=== PATIENT | female | born 1995 | race Caucasian/White ===

== ENCOUNTER 2019-02-07 08:27 | Emergency (ER) | payer OTHER ==
[2019-02-07 09:10] LABS: BILIRUBIN,URINE NEGATIVE (NEGATIVE); GLUCOSE, URINE (UA) NEGATIVE (NEGATIVE); KETONES,URINE (UA) NEGATIVE (NEGATIVE); LEUKOCYTE ESTERASE, URINE NEGATIVE (NEGATIVE); NITRITE,URINE NEGATIVE (NEGATIVE); OCCULT BLOOD,URINE NEGATIVE (NEGATIVE); PROTEIN,URINE NEGATIVE (NEGATIVE); UROBILINOGEN,URINE 0.2 (NORMAL) E.U./dL (NORMAL)
[2019-02-07 09:15] LABS: CLARITY,URINE CLEAR (CLEAR)
[2019-02-07 09:22] LABS: BASOPHILS % (AUTO) 0.3 %; EOSINOPHILS % (AUTO) 0.1 %; HGB - HEMOGLOBIN 13.8 g/dL (12.0-16.0); LYMPHOCYTES # (AUTO) 1.4 10^3/uL (1.5-3.5); LYMPHOCYTES % (AUTO) 20.7 %; MEAN CORPUSCULAR HEMOGLOBIN 28.3 pg (27.0-31.0); MEAN CORPUSCULAR HGB CONC 31.9 g/dL (32.0-36.0); MEAN CORPUSCULAR VOLUME 88.9 fL (81.0-99.0); MEAN PLATELET VOLUME 11.1 fL (7.9-10.8); MONOCYTES # (AUTO) 0.4 10^3/uL (0.0-1.0); MONOCYTES % (AUTO) 5.5 %; NEUTROPHILS % (AUTO) 73.1 %; PLT - PLATELET COUNT 215 10^3/uL (130-450); RED BLOOD COUNT 4.87 10^6/uL (4.20-5.40); RED CELL DISTRIBUTION WIDTH 13.2 % (12.0-15.0); WHITE BLOOD COUNT 6.8 x10^3/uL (4.8-10.8)
[2019-02-07] MEDS ORDERED: SODIUM CHLORIDE 0.9% 1,000 ML IV ONE (09:25)
[2019-02-07] MEDS ORDERED: METOCLOPRAMIDE 10 MG/2 ML VIAL IVP STA (09:25)
--- NOTE | 2019-02-07 09:34 | ED Physician Documentation ---
PD HPI NVD - Stated complaint Stated Complaint: NAUSEA/VOMITING/DIARRHEA - Chief complaint Chief Complaint: Abd Pain - History obtained from History obtained from: Patient - History of Present Illness Timing - onset: How many days ago (2) Timing - duration: Days (2) Timing - details: Gradual onset Pain level max: 0 Pain level now: 0 Associated symptoms: No: Fever, Abdominal pain, Chest pain, Hematemesis, Melena, Hematochezia Recently seen: Not recently seen - Additonal information Additional information: 23-year-old female, 2, approximately 8 weeks . She states she has had diarrhea for the past 2 days and began vomiting. No feels lightheaded. No fevers. No vaginal bleeding or discharge. Nothing makes it better or worse. Has not taken anything for this. No fevers. No recent travel. No recent antibiotics. Review of Systems Ten Systems: 10 systems reviewed and negative Constitutional: denies: Fever, Chills Cardiac: denies: Chest pain / pressure Respiratory: denies: Cough GI: reports: Nausea, Vomiting Skin: denies: Rash Musculoskeletal: denies: Neck pain, Back pain Neurologic: denies: Focal weakness, Numbness, Headache PD PAST MEDICAL HISTORY - Past Medical History Past Medical History: No - Past Surgical History Past Surgical History: No - Present Medications Home Medications: Ambulatory Orders Medication Instructions Recorded Confirmed Metoclopramide [Reglan] 10 mg PO Q6H PRN #20 tablet 02/07/19 - Living Situation Living Situation: reports: With family Living Arrangement: reports: At home - Social History Does the pt smoke?: No Does the pt drink ETOH?: No Does the pt have substance abuse?: No - Family History Family history: reports: Non contributory PD ED PE NORMAL - Vitals Vital signs reviewed: Yes - General General: Alert and oriented X 3, No acute distress, Well developed/nourished - HEENT HEENT: Moist mucous membranes - Neck Neck: Supple, no meningeal sign - Cardiac Cardiac: RRR, Strong equal pulses - Respiratory Respiratory: No respiratory distress, Clear bilaterally - Abdomen Abdomen: Soft, Non tender, Non distended - Back Back: No CVA TTP - Derm Derm: Warm and dry, No rash - Extremities Extremities: No edema - Neuro Neuro: Alert and oriented X 3 - Psych Psych: Normal mood, Normal affect Results - Vitals Vitals: Vital Signs - 24 hr 02/07/19 02/07/19 08:48 11:19 Temperature 37.0 C 36.9 C Heart Rate 95 83 Respiratory 18 16 Rate Blood Pressure 125/81 H 152/88 H O2 Saturation 99 100 Oxygen O2 Source Room air - Labs Labs: Laboratory Tests 02/07/19 02/07/19 02/07/19 07:16 07:16 09:00 WBC 6.8 RBC 4.87 Hgb 13.8 Hct 43.3 MCV 88.9 MCH 28.3 MCHC 31.9 L RDW 13.2 Plt Count 215 MPV 11.1 H Neut # (Auto) 5.0 Lymph # (Auto) 1.4 L [place] # (Auto) 0.4 Eos # (Auto) 0.0 Baso # (Auto) 0.0 Absolute Nucleated RBC 0.00 Nucleated RBC % 0.0 Sodium 139 Potassium 4.2 Chloride 106 Carbon Dioxide 24 Anion Gap 9.0 BUN 10 Creatinine 0.7 Estimated GFR (MDRD) 104 Glucose 92 Calcium 8.8 Total Bilirubin 0.4 AST 19 ALT < 10 L Alkaline Phosphatase 42 Total Protein 7.1 Albumin 4.1 Globulin 3.0 Albumin/Globulin Ratio 1.4 Lipase 27 Urine Color YELLOW Urine Clarity CLEAR Urine pH 6.0 Ur Specific [place] 1.020 Urine Protein NEGATIVE Urine Glucose (UA) NEGATIVE Urine Ketones NEGATIVE Urine Occult Blood NEGATIVE Urine Nitrite NEGATIVE Urine Bilirubin NEGATIVE Urine Urobilinogen 0.2 (NORMAL) Ur Leukocyte Esterase NEGATIVE Ur Microscopic Review NOT INDICATED Urine Culture Comments NOT INDICATED PD MEDICAL DECISION MAKING - ED course Complexity details: reviewed results, re-evaluated patient, considered differential, d/w patient ED course: 23-year-old female presents the emergency department with what appears to be a viral gastroenteritis. She is well-appearing, nontoxic. Afebrile. Does not appear to be proximately related at this time. Tolerating p.o. after Reglan. Given IV fluids. Patient counseled regarding signs and symptoms for which I believe and urgent re-evaluation would be necessary. Patient with good understanding of and agreement to plan and is comfortable going home at this time This document was made in part using voice recognition software. While efforts are made to proofread this document, sound alike and grammatical errors may occur. Departure - Departure Disposition: 01 Home, Self Care Clinical Impression: Gastroenteritis Condition: Good Instructions: ED Gastroenteritis Viral Follow-Up: JORGITO CARROLL ARNP [Primary Care Provider] - Within 1 week Prescriptions: Metoclopramide [Reglan] 10 mg PO Q6H PRN #20 tablet PRN Reason: Nausea / Vomiting Comments: Drink plenty of fluids. Return if you worsen. Discharge Date/Time: 02/07/19 11:25
[2019-02-07 10:02] LABS: ALBUMIN 4.1 g/dL (3.2-5.5); ALBUMIN/GLOBULIN RATIO 1.4 (1.0-2.2); ALKALINE PHOSPHATASE 42 IU/L (42-121); ALT ALANINE AMINOTRANSFERASE < 10 IU/L (10-60); AST ASPARTATE AMINOTRANSFERASE 19 IU/L (10-42); BILIRUBIN,TOTAL 0.4 mg/dL (0.2-1.0); BUN - BLOOD UREA NITROGEN 10 mg/dL (6-20); CALCIUM 8.8 mg/dL (8.5-10.3); CARBON DIOXIDE - CO2 24 mmol/L (21-32); CHLORIDE 106 mmol/L (101-111); CREATININE 0.7 mg/dL (0.4-1.0); GFR - MDRD 104 (>89); GLUCOSE 92 mg/dL (70-100); LIPASE 27 U/L (22-51); SODIUM 139 mmol/L (135-145); TOTAL PROTEIN 7.1 g/dL (6.7-8.2)
[2019-02-07 11:20] VITALS: BP 152/88
== END 2019-02-07 11:25 | disposition home or self-care (01) ==
LOC: ED 08:27
DX: O99.611 Diseases of the digestive system complicating pregnancy, first trimester (principal); K52.9 Noninfective gastroenteritis and colitis, unspecified; Z3A.08 8 weeks gestation of pregnancy
CPT/HCPCS: 36415; 80053; 81003; 83690; 85025; 99283; 99284; J2765; 81001; 87086

== ENCOUNTER 2019-08-27 11:34 | Emergency (ER) | payer OTHER ==
[2019-08-27 11:48] VITALS: BP 147/84
[2019-08-27 12:14] LABS: BILIRUBIN,URINE NEGATIVE (NEGATIVE); GLUCOSE, URINE (UA) NEGATIVE (NEGATIVE); KETONES,URINE (UA) NEGATIVE (NEGATIVE); LEUKOCYTE ESTERASE, URINE NEGATIVE (NEGATIVE); NITRITE,URINE POSITIVE (NEGATIVE); OCCULT BLOOD,URINE TRACE-INTA (NEGATIVE); PH,URINE 5.5 PH (5.0-7.5); PROTEIN,URINE NEGATIVE (NEGATIVE); UROBILINOGEN,URINE 0.2 (NORMAL) E.U./dL (NORMAL)
[2019-08-27 12:15] LABS: CLARITY,URINE SL. CLOUDY (CLEAR)
[2019-08-27 12:19] LABS: HCG UR QUAL NEGATIVE
--- NOTE | 2019-08-27 12:21 | ED Physician Documentation ---
PD HPI FEMALE - Stated complaint Stated Complaint: FEMALE - Chief complaint Chief Complaint: UTI - History obtained from History obtained from: Patient - History of Present Illness Timing - onset: How many days ago (2-3) Timing - duration: Days (2-3) Timing - details: Gradual onset, Still present Associated symptoms: Dysuria, Hematuria. 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 Similar symptoms before: Has not had sx before Recently seen: Not recently seen Review of Systems Constitutional: denies: Fever, Chills, Myalgias Nose: denies: Rhinorrhea / runny nose, Congestion Throat: denies: Sore throat Respiratory: denies: Cough Skin: denies: Rash, Lesions Neurologic: denies: Near syncope PD PAST MEDICAL HISTORY - Past Medical History Past Medical History: No - Past Surgical History Past Surgical History: No - Present Medications Home Medications: Ambulatory Orders Medication Instructions Recorded Confirmed Cephalexin [Keflex] 500 mg PO TID #20 capsule 08/27/19 Naproxen 375 mg PO BID #20 tablet 08/27/19 Phenazopyridine HCl [Pyridium] 100 mg PO TID PRN #15 tablet 08/27/19 - Allergies Allergies/Adverse Reactions: Allergies Allergy/AdvReac Type Severity Reaction Status Date / Time No Known Drug Allergies Allergy Verified 08/27/19 11:46 - Social History Does the pt smoke?: No Smoking Status: Never smoker Does the pt drink ETOH?: No Does the pt have substance abuse?: No PD ED PE NORMAL - Vitals Vital signs reviewed: Yes - General General: Alert and oriented X 3, No acute distress, Well developed/nourished - Abdomen Abdomen: Soft, Non tender - Female Female : Deferred - Back Back: No CVA TTP - Neuro Neuro: Alert and oriented X 3, No motor deficit, Normal speech Results - Vitals Vitals: Vital Signs - 24 hr 08/27/19 11:46 Temperature 36.8 C Heart Rate 95 Respiratory 15 Rate Blood Pressure 147/84 H O2 Saturation 100 Oxygen O2 Source Room air - Labs Labs: Laboratory Tests 08/27/19 08/27/19 11:57 11:57 Urine Color YELLOW Urine Clarity SL. CL[place]DY Urine pH 5.5 Ur Specific [place] 1.025 1.025 Urine Protein NEGATIVE Urine Glucose (UA) NEGATIVE Urine Ketones NEGATIVE Urine Occult Blood TRACE-INTA Urine Nitrite POSITIVE H Urine Bilirubin NEGATIVE Urine Urobilinogen 0.2 (NORMAL) Ur Leukocyte Esterase NEGATIVE Urine RBC 0-5 Urine WBC 6-10 H Ur Squamous Epith Cells FEW Squamous Urine Bacteria Many H Ur Microscopic Review INDICATED Urine Culture Comments INDICATED Urine HCG, Qual NEGATIVE Departure - Departure Disposition: Home, Self Care Clinical Impression: Urinary tract infection Qualifiers: Urinary tract infection type: acute cystitis Hematuria presence: with hematuria Qualified Code(s): N30.01 - Acute cystitis with hematuria Condition: Stable Record reviewed to determine appropriate education?: Yes Instructions: ED UTI Cystitis Female Follow-Up: JORGITO CARROLL ARNP [Primary Care Provider] - Prescriptions: Cephalexin [Keflex] 500 mg PO TID #20 capsule Naproxen 375 mg PO BID #20 tablet Phenazopyridine HCl [Pyridium] 100 mg PO TID PRN #15 tablet PRN Reason: Abdominal Pain Comments: Stay well-hydrated. Use the anti-inflammatory 2-3 times daily to help with irritation and pains. Phenazopyridine with help symptoms. Cephalexin antibiotic as directed for a week for the infection. I would anticipate improvement over the next 2 to 3 days and resolution by 3 to 5 days. Recheck if not following that time course. Forms: Activity restrictions Discharge Date/Time: 08/27/19 12:50
[2019-08-27 12:29] LABS: BACTERIA,URINE Many /HPF (None Seen); RBC,URINE 0-5 /HPF (0-5); SQUAMOUS EPITHELIAL CELL,UR FEW Squamous (<= Few)
[2019-08-27] MEDS ORDERED: cephALEXin 250 MG CAPSULE PO STA (12:33)
[2019-08-27] MEDS ORDERED: PHENAZOPYRIDINE 100 MG TABLET PO STA (12:33)
[2019-08-27] MEDS ORDERED: IBUPROFEN 600 MG TABLET PO STA (12:33)
== END 2019-08-27 12:50 | disposition home or self-care (01) ==
LOC: ED 11:34
DX: N30.01 Acute cystitis with hematuria (principal)
CPT/HCPCS: 81001; 81025; 87086; 87181; 99283; A9270; 81003

== ENCOUNTER 2019-10-08 23:37 | Emergency (ER) | payer OTHER ==
--- NOTE | 2019-10-08 23:40 | ED Physician Documentation ---
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 requesting a test. reports morning sickness. First day of LMP 6 weeks ago. denies vag bleeding or pelvic pain.) Review of Systems Constitutional: reports: Reviewed and negative Eyes: reports: Reviewed and negative Ears: reports: Reviewed and negative Nose: reports: Reviewed and negative Throat: reports: Reviewed and negative Cardiac: reports: Reviewed and negative Respiratory: reports: Reviewed and negative GI: reports: Nausea : reports: Reviewed and negative Skin: reports: Reviewed and negative Musculoskeletal: reports: Reviewed and negative Neurologic: reports: Reviewed and negative Psychiatric: reports: Reviewed and negative Endocrine: reports: Reviewed and negative Immunocompromised: reports: Reviewed and negative PD PAST MEDICAL HISTORY - Past Surgical History Past Surgical History: No - Present Medications Home Medications: Ambulatory Orders Medication Instructions Recorded Confirmed Cephalexin [Keflex] 500 mg PO TID #20 capsule 08/27/19 Naproxen 375 mg PO BID #20 tablet 08/27/19 Phenazopyridine HCl [Pyridium] 100 mg PO TID PRN #15 tablet 08/27/19 Ondansetron Odt [Zofran Odt] 4 mg TL Q6H PRN #10 tablet 10/09/19 - Allergies Allergies/Adverse Reactions: Allergies Allergy/AdvReac Type Severity Reaction Status Date / Time No Known Drug Allergies Allergy Verified 10/08/19 23:45 - Social History Does the pt smoke?: No Smoking Status: Never smoker Does the pt drink ETOH?: No Does the pt have substance abuse?: No PD ED PE NORMAL - Vitals Vital signs reviewed: Yes - General General: Alert and oriented X 3, No acute distress - HEENT HEENT: PERRL - Neck Neck: Supple, no meningeal sign - Cardiac Cardiac: RRR, No murmur - Respiratory Respiratory: Clear bilaterally - Abdomen Abdomen: Normal bowel sounds, Soft, Non tender, Non distended, No organomegaly - Derm Derm: Warm and dry - Extremities Extremities: No deformity - Neuro Neuro: Alert and oriented X 3 - Psych Psych: Normal mood, Normal affect Results - Vitals Vitals: Vital Signs - 24 hr 10/08/19 10/09/19 23:43 00:11 Temperature 36.8 C Heart Rate 110 H 99 Respiratory 14 18 Rate Blood Pressure 160/96 H O2 Saturation 98 100 Oxygen O2 Source Room air - Labs Labs: Laboratory Tests 10/08/19 23:38 Urine Color YELLOW Urine Clarity CLEAR Urine pH 6.0 Ur Specific [place] >=1.030 H Urine Protein NEGATIVE Urine Glucose (UA) NEGATIVE Urine Ketones TRACE Urine Occult Blood NEGATIVE Urine Nitrite NEGATIVE Urine Bilirubin NEGATIVE Urine Urobilinogen 0.2 (NORMAL) Ur Leukocyte Esterase NEGATIVE Ur Microscopic Review NOT INDICATED Urine Culture Comments NOT INDICATED Urine HCG, Qual POSITIVE PD MEDICAL DECISION MAKING - ED course Complexity details: reviewed results, considered differential (. Patient's urine test is positive. She will follow-up with [facility] at 7 am today. She would like to be treated with Zofran she accepts all possible adverse risks to include any adverse effects to the fetus.), d/w patient Departure - Departure Disposition: 01 Home, Self Care Clinical Impression: Nausea/vomiting in Condition: Stable Instructions: ED Preg Morning Sickness Follow-Up: JORGITO CARROLL ARNP [Primary Care Provider] - 10/09/19 Prescriptions: Ondansetron Odt [Zofran Odt] 4 mg TL Q6H PRN #10 tablet PRN Reason: Nausea / Vomiting Comments: Take a daily vitamin. Call your primary care provider today to schedule follow-up. Discharge Date/Time: 10/09/19 00:11
[2019-10-08 23:45] VITALS: BP 160/96
[2019-10-08 23:59] LABS: BILIRUBIN,URINE NEGATIVE (NEGATIVE); GLUCOSE, URINE (UA) NEGATIVE (NEGATIVE); KETONES,URINE (UA) TRACE mg/dL (NEGATIVE); LEUKOCYTE ESTERASE, URINE NEGATIVE (NEGATIVE); NITRITE,URINE NEGATIVE (NEGATIVE); OCCULT BLOOD,URINE NEGATIVE (NEGATIVE); PROTEIN,URINE NEGATIVE (NEGATIVE); UROBILINOGEN,URINE 0.2 (NORMAL) E.U./dL (NORMAL)
[2019-10-09] LABS: CLARITY,URINE CLEAR (CLEAR); HCG UR QUAL POSITIVE
[2019-10-09] MEDS ORDERED: ONDANSETRON ODT 4 MG TABLET TL STA (00:01)
== END 2019-10-09 00:11 | disposition home or self-care (01) ==
LOC: ED 23:37
DX: O21.0 Mild hyperemesis gravidarum (principal); Z3A.01 Less than 8 weeks gestation of pregnancy
CPT/HCPCS: 81003; 81025; 99283; Q0162; 81001; 87086

== ENCOUNTER 2019-10-09 16:18 | Emergency (ER) | payer OTHER ==
[2019-10-09] MEDS ORDERED: ONDANSETRON 4 MG/2 ML VIAL IVP STA (18:20)
[2019-10-09] MEDS ORDERED: SODIUM CHLORIDE 0.9% 1,000 ML IV STA ×2 (18:20→18:40)
--- NOTE | 2019-10-09 18:25 | ED Physician Documentation ---
History of Present Illness - Stated complaint Stated Complaint: NAUSEA, ABD PAIN - Chief complaint Chief Complaint: General - History obtained from History obtained from: Patient, Other (ED chart 10/07) - History of Present Illness Pain level max: 0 Pain level now: 0 - Additonal information Additional information: 24-year-old female comes to the emergency department with chief complaint of uncontrolled vomiting. She was seen in this emergency department last night because she thought she had food poisoning but urinalysis indicated that she was . She states that since being discharged home she has not stop vomiting. She denies any focal lower abdominal pain. However she reports taht 3 day sago she did have penelope e"spotting" none since Patient is 3 para 1 A1. Last menstrual period 08/31/2019. She states that with her previous pregnancies that she has never had uncontrolled vomiting. She was prescribed Zofran by this attending physician last night but despite Zofran continues to vomit. She states that 3 days ago she had some brown spotting but none since. She does feel like she has lower pelvic cramping, but no focal pelvic pain. Review of Systems Constitutional: denies: Fever, Chills Cardiac: denies: Chest pain / pressure, Palpitations Respiratory: denies: Dyspnea, Cough GI: reports: Nausea, Vomiting. denies: Abdominal Pain, Constipation, Diarrhea, Hematemesis : reports: LMP (08/31/19), Now EGA. denies: Dysuria, Frequency, Hesitancy, Vaginal bleeding, Irregular menses Skin: denies: Rash, Lesions Neurologic: denies: Syncope, Confused, Headache PD PAST MEDICAL HISTORY - Past Surgical History Past Surgical History: No - Present Medications Home Medications: Ambulatory Orders Medication Instructions Recorded Confirmed Cephalexin [Keflex] 500 mg PO TID #20 capsule 08/27/19 Naproxen 375 mg PO BID #20 tablet 08/27/19 Phenazopyridine HCl [Pyridium] 100 mg PO TID PRN #15 tablet 08/27/19 Doxylamine/Pyridoxine HCl 1 each PO BID PRN #15 tab 10/09/19 [[address] Dr 10-10 mg Tablet] Ondansetron Odt [Zofran Odt] 4 mg TL Q6H PRN #10 tablet 10/09/19 - Allergies Allergies/Adverse Reactions: Allergies Allergy/AdvReac Type Severity Reaction Status Date / Time No Known Drug Allergies Allergy Verified 10/08/19 23:45 - Social History Does the pt smoke?: No Smoking Status: Never smoker Does the pt drink ETOH?: No Does the pt have substance abuse?: No - Immunizations Immunizations are current?: Yes - POLST Patient has POLST: No PD ED PE NORMAL - General General: Alert and oriented X 3, No acute distress, Well developed/nourished - HEENT HEENT: PERRL, EOMI - Neck Neck: Supple, no meningeal sign, No adenopathy - Cardiac Cardiac: RRR, No murmur - Respiratory Respiratory: No respiratory distress, Clear bilaterally - Abdomen Abdomen: Normal bowel sounds, Non tender, Non distended - Back Back: No CVA TTP, No spinal TTP - Derm Derm: Normal color, Warm and dry - Extremities Extremities: No deformity - Neuro Neuro: Alert and oriented X 3, corrugator 2-12 intact, No motor deficit, No sensory deficit Results - Vitals Vitals: Vital Signs - 24 hr 10/09/19 10/09/19 16:31 19:00 Temperature 36.2 C L Heart Rate 100 62 Respiratory 16 18 Rate Blood Pressure 134/83 H 119/67 O2 Saturation 98 99 Oxygen O2 Source Room air - Labs Labs: Laboratory Tests 10/09/19 10/09/19 10/09/19 17:25 18:20 18:20 WBC 6.6 RBC 4.93 Hgb 14.3 Hct 42.3 MCV 85.8 MCH 29.0 MCHC 33.8 RDW 13.3 Plt Count 232 MPV 10.8 Neut # (Auto) 4.5 Lymph # (Auto) 1.6 [place] # (Auto) 0.4 Eos # (Auto) 0.0 Baso # (Auto) 0.0 Absolute Nucleated RBC 0.00 Nucleated RBC % 0.0 Sodium 136 Potassium 3.7 Chloride 103 Carbon Dioxide 23 Anion Gap 10.0 BUN 9 Creatinine 0.7 Estimated GFR (MDRD) 103 Glucose 87 Calcium 9.1 Total Bilirubin 0.8 AST 20 ALT 11 Alkaline Phosphatase 51 Total Protein 7.8 Albumin 4.8 Globulin 3.0 Albumin/Globulin Ratio 1.6 Lipase 28 HCG, Quant Urine Color YELLOW Urine Clarity CLEAR Urine pH 7.0 Ur Specific [place] 1.015 Urine Protein NEGATIVE Urine Glucose (UA) NEGATIVE Urine Ketones NEGATIVE Urine Occult Blood NEGATIVE Urine Nitrite NEGATIVE Urine Bilirubin NEGATIVE Urine Urobilinogen 0.2 (NORMAL) Ur Leukocyte Esterase NEGATIVE Ur Microscopic Review NOT INDICATED Urine Culture Comments NOT INDICATED Blood Type 10/09/19 10/09/19 18:20 18:20 WBC RBC Hgb Hct MCV MCH MCHC RDW Plt Count MPV Neut # (Auto) Lymph # (Auto) [place] # (Auto) Eos # (Auto) Baso # (Auto) Absolute Nucleated RBC Nucleated RBC % Sodium Potassium Chloride Carbon Dioxide Anion Gap BUN Creatinine Estimated GFR (MDRD) Glucose Calcium Total Bilirubin AST ALT Alkaline Phosphatase Total Protein Albumin Globulin Albumin/Globulin Ratio Lipase HCG, Quant 85766.00 Urine Color Urine Clarity Urine pH Ur Specific [place] Urine Protein Urine Glucose (UA) Urine Ketones Urine Occult Blood Urine Nitrite Urine Bilirubin Urine Urobilinogen Ur Leukocyte Esterase Ur Microscopic Review Urine Culture Comments Blood Type O POSITIVE - Rads (name of study) Pelvic OB Radiology: Final report received (Single live IUP meFetal heart tones were 95 bpm, which is less than expected for gestation of this age.asured at 6 weeks 2 days.) PD MEDICAL DECISION MAKING - ED course Complexity details: reviewed old records, reviewed results, re-evaluated patient, d/w patient ED course: 24-year-old female presents to the emergency department with chief complaint of uncontrolled vomiting. She was seen in this emergency department yesterday for what she thought was food poisoning and had an incidental finding of . Patient reports that she had some spotting about 3 days ago. She denies pelvic pain at this time - ddx includes threatened ab, ectopic, hyperemeis gravidum, uti - Labs reviewed in full. Patient is O+. No anemia. She has a very healthy serum hCG.No findings of urinary tract infection. - Pelvic ultrasound completed and it shows a early IUP at 6 weeks 2 days. The detected heart tones were 95 bpm which is less than expected for gestational age. Close follow-up is recommended as this may be a potential impending . There were no findings suggestive of an ectopic and patient has no lower pelvic pain. - Her vomiting improved markedly following 2 L of crystalloid here in the emergency department. She is now tolerating sips of clear soda. Though she has Zofran at home she did not find it helpful. I will also prescribe diclegis to be used for suspected morning sickness. - Patient [place] evaluation of the . We discussed emergent return precautions for vaginal bleeding, sudden severe pain, or uncontrolled vomiting. Departure - Departure Disposition: 01 Home, Self Care Clinical Impression: Vomiting affecting , Threatened miscarriage in early Condition: Stable Instructions: ED Preg Morning Sickness Prescriptions: Doxylamine/Pyridoxine HCl [Diclegis Dr 10-10 mg Tablet] 1 each PO BID PRN #15 tab PRN Reason: Nausea / Vomiting Comments: Tracy I am glad that you feel better. Your labs today looked normal and we do not have any findings of infection in the urine The ultrasound shows that you are about 6 weeks 2 days along. However the heart rate was a little less than we would expect for an embryo of this age. It is too early to tell but sometimes this can be a sign of an early miscarriage. If you have suddenly severe belly pain, severe vaginal bleeding, feel faint or weak please return to the emergency department. I am glad that your morning sickness is better. Please eat and drink small sips of food and liquid frequently. You may continue to use the Zofran prescribed yesterday for nausea. However if that does not work then please fill the prescription for the diclegis It is important that you establish with an OB soon to discuss long-term management of this .
[2019-10-09 18:28] LABS: BASOPHILS % (AUTO) 0.3 %; EOSINOPHILS % (AUTO) 0.3 %; HGB - HEMOGLOBIN 14.3 g/dL (12.0-16.0); LYMPHOCYTES # (AUTO) 1.6 10^3/uL (1.5-3.5); LYMPHOCYTES % (AUTO) 24.5 %; MEAN CORPUSCULAR HGB CONC 33.8 g/dL (32.0-36.0); MEAN CORPUSCULAR VOLUME 85.8 fL (81.0-99.0); MEAN PLATELET VOLUME 10.8 fL (7.9-10.8); MONOCYTES # (AUTO) 0.4 10^3/uL (0.0-1.0); MONOCYTES % (AUTO) 6.5 %; NEUTROPHILS # (AUTO) 4.5 10^3/uL (1.5-6.6); NEUTROPHILS % (AUTO) 68.1 %; PLT - PLATELET COUNT 232 10^3/uL (130-450); RED BLOOD COUNT 4.93 10^6/uL (4.20-5.40); RED CELL DISTRIBUTION WIDTH 13.3 % (12.0-15.0); WHITE BLOOD COUNT 6.6 x10^3/uL (4.8-10.8)
[2019-10-09 18:43] LABS: ALBUMIN 4.8 g/dL (3.2-5.5); ALBUMIN/GLOBULIN RATIO 1.6 (1.0-2.2); BILIRUBIN,TOTAL 0.8 mg/dL (0.2-1.0); CALCIUM 9.1 mg/dL (8.5-10.3); CREATININE 0.7 mg/dL (0.4-1.0); TOTAL PROTEIN 7.8 g/dL (6.7-8.2)
[2019-10-09 18:50] LABS: BILIRUBIN,URINE NEGATIVE (NEGATIVE); GLUCOSE, URINE (UA) NEGATIVE (NEGATIVE); KETONES,URINE (UA) NEGATIVE (NEGATIVE); LEUKOCYTE ESTERASE, URINE NEGATIVE (NEGATIVE); NITRITE,URINE NEGATIVE (NEGATIVE); OCCULT BLOOD,URINE NEGATIVE (NEGATIVE); PROTEIN,URINE NEGATIVE (NEGATIVE); UROBILINOGEN,URINE 0.2 (NORMAL) E.U./dL (NORMAL)
[2019-10-09 18:56] LABS: CLARITY,URINE CLEAR (CLEAR)
--- NOTE | 2019-10-09 20:28 | Ultrasound Report ---
PROCEDURE: OB First Trimester INDICATIONS: spotting a few days ago; newly OUTSIDE/PRIOR DATING DATA: Last menstrual period (LMP): 08/31/2019. LMP-based estimated date of delivery (LANETTE): 06/06/2020. TECHNIQUE: Real-time scanning was performed of the fetus and maternal pelvic organs, with image documentation. COMPARISON: None FINDINGS: Embryo: There is a gestational sac in the uterine fundus measuring approximately 1.5 cm in mean sac diameter, corresponding to a gestational age is 6 weeks 2 days. There is a pole within the gest ational sac measuring approximately 0.5 cm, also corresponding to a gestational age of 6 weeks 2 days . The average ultrasound age based on multiple parameters is 6 weeks 2 days. heart tones are 95 bpm. Maternal organs: Ovaries unremarkable. No maternal hydronephrosis. IMPRESSION: Single live intrauterine gestation with a mean gestational age of 6 weeks 2 days. The detected heart tones were 95 bpm, which is less than expected for a gestation of this age. Close clinical foll ow-up is recommended, as this may suggest potential impending spontaneous , particularly give n the history of vaginal bleeding. Reviewed by: Josse Daigle MD on 10/09/2019 8:26 PM PDT Approved by: Josse Daigle MD on 10/09/2019 8:26 PM PDT Station ID: [id number]
--- NOTE | 2019-10-09 20:42 | Ultrasound Report ---
PROCEDURE: OB First Trimester INDICATIONS: spotting a few days ago; newly OUTSIDE/PRIOR DATING DATA: Last menstrual period (LMP): 08/31/2019. LMP-based estimated date of delivery (LANETTE): 06/06/2020. TECHNIQUE: Real-time scanning was performed of the fetus and maternal pelvic organs, with image documentation. COMPARISON: None FINDINGS: Embryo: There is a gestational sac in the uterine fundus measuring approximately 1.5 cm in mean sac diameter, corresponding to a gestational age is 6 weeks 2 days. There is a pole within the gest ational sac measuring approximately 0.5 cm, also corresponding to a gestational age of 6 weeks 2 days . The average ultrasound age based on multiple parameters is 6 weeks 2 days. heart tones are 95 bpm. Maternal organs: Ovaries unremarkable. No maternal hydronephrosis. IMPRESSION: Single live intrauterine gestation with a mean gestational age of 6 weeks 2 days. The detected heart tones were 95 bpm, which is less than expected for a gestation of this age. Close clinical foll ow-up is recommended, as this may suggest potential impending spontaneous , particularly give n the history of vaginal bleeding. Reviewed by: Josse Daigle MD on 10/09/2019 8:40 PM PDT Approved by: Josse Daigle MD on 10/09/2019 8:40 PM PDT Station ID: [id number]
[2019-10-09 21:02] VITALS: BP 122/71
== END 2019-10-09 21:18 | disposition home or self-care (01) ==
LOC: ED 16:18
DX: O21.0 Mild hyperemesis gravidarum (principal); O20.0 Threatened abortion; Z3A.01 Less than 8 weeks gestation of pregnancy
CPT/HCPCS: 36415; 76801; 76817; 80053; 81003; 81025; 83690; 84702; 85025; 86900; 86901; 96361; 96374; 99283; 99284; Q0162; 81001; 87086

== ENCOUNTER 2020-05-11 08:00 | Outpatient (CLI) | payer OTHER | END 2020-05-11 23:59 | disposition home or self-care (01) | LOC: LAB.R 08:00 | PROVIDERS: ATTEND Obstetrics & Gynecology | DX: Z36.85 Encounter for antenatal screening for Streptococcus B (principal) | CPT/HCPCS: 87797 ==

== ENCOUNTER 2020-05-31 10:01 | Outpatient (CLI) | payer OTHER ==
[2020-05-31 10:34] LABS: BASOPHILS % (AUTO) 0.4 %; EOSINOPHILS % (AUTO) 0.5 %; HCT - HEMATOCRIT 33.8 % (37.0-47.0); HGB - HEMOGLOBIN 10.3 g/dL (12.0-16.0); LYMPHOCYTES # (AUTO) 1.4 10^3/uL (1.5-3.5); MEAN CORPUSCULAR HEMOGLOBIN 22.6 pg (27.0-31.0); MEAN CORPUSCULAR HGB CONC 30.5 g/dL (32.0-36.0); MEAN CORPUSCULAR VOLUME 74.1 fL (81.0-99.0); MEAN PLATELET VOLUME 11.3 fL (7.9-10.8); MONOCYTES # (AUTO) 0.6 10^3/uL (0.0-1.0); MONOCYTES % (AUTO) 7.5 %; NEUTROPHILS # (AUTO) 5.7 10^3/uL (1.5-6.6); NEUTROPHILS % (AUTO) 72.7 %; PLT - PLATELET COUNT 229 10^3/uL (130-450); RED BLOOD COUNT 4.56 10^6/uL (4.20-5.40); RED CELL DISTRIBUTION WIDTH 15.2 % (12.0-15.0); WHITE BLOOD COUNT 7.9 x10^3/uL (4.8-10.8)
== END 2020-05-31 10:02 | disposition home or self-care (01) ==
LOC: LAB 10:01
PROVIDERS: ATTEND Family Medicine
DX: Z01.812 Encounter for preprocedural laboratory examination (principal); O34.211 Maternal care for low transverse scar from previous cesarean delivery; Z3A.39 39 weeks gestation of pregnancy; Z20.822 Contact with and (suspected) exposure to COVID-19
CPT/HCPCS: 36415; 85025

== ENCOUNTER 2020-06-02 05:28 | Inpatient (IN) | payer OTHER ==
[2020-06-02] MEDS ORDERED: ceFAZolin 2 GM/50 ML 2 GM/50 ML BAG IV ONE (05:30)
[2020-06-02] MEDS ORDERED: LACTATED RINGERS 1,000 ML IV SCH ×2 (06:00→10:00)
[2020-06-02] MEDS ORDERED: fentaNYL 100 MCG/2 ML VIAL ONE (06:59)
[2020-06-02] MEDS ORDERED: ONDANSETRON 4 MG/2 ML VIAL ONE (07:00)
[2020-06-02] MEDS ORDERED: MORPHINE PF 5 MG/10 ML VIAL ONE (07:00)
[2020-06-02] MEDS ORDERED: OXYTOCIN 10 UNIT/ML VIAL ONE (07:00)
--- NOTE | 2020-06-02 07:16 | ANESTHESIA ---
Pre-Anesthesia VS, & Labs - Diagnosis previous section - Procedure Repeat section Vital Signs: Temp Pulse Resp BP Pulse Ox 37.1 C 103 H 20 125/79 06/02/20 05:46 06/02/20 05:38 06/02/20 05:38 06/02/20 05:38 Height: 5 ft 7 in Weight (kg): 107.955 kg Body Mass Index: 37.3 BMI Classification: Obese - NPO >8 hours - Is Patient ?: Yes - Lab Results Current Lab Results: Laboratory Tests 06/02/20 06:05: Blood Type O POSITIVE, Antibody Screen NEGATIVE, Crossmatch IS Only See Detail Lab results reviewed: Yes Home Medications and Allergies Active Medications Lactated Ringer's (Lr) 1,000 mls @ 125 mls/hr IV .Q8H ABELINO Allergies/Adverse Reactions: Allergies Allergy/AdvReac Type Severity Reaction Status Date / Time No Known Drug Allergies Allergy Verified 11/01/19 01:30 Anes History & Medical History - Anesthetic History Anesthesia Complications: reports: No previous complications Family history of Anesthesia Complications: Denies Family history of Malignant Hyperthermia: Denies - Medical History Cardiovascular: reports: None Pulmonary: reports: None Gastrointestinal: reports: None Urinary: reports: None Neuro: reports: None Musculoskeletal: reports: None Endocrine/Autoimmune: reports: None Blood Disorders: reports: None Skin: reports: None Smoking Status: Never smoker Psychosocial: reports: No issues indicated History of Cancer?: No - Surgical History Gynecologic: reports: section Exam General: Alert, Oriented x3, Cooperative, No acute distress Dental: WNL Mouth Openin Fingerbreadth Neck Mobility: Normal Mallampati classification: II Respiratory: Lungs clear, Normal breath sounds, No respiratory distress, No accessory muscle use Cardiovascular: Regular rate, Normal S1, Normal S2, No murmurs Plan Anesthesia Type: General (backup), Spinal, Transverse Abdominis Plane (TAP) Block (incase of GETA) Regional Block: Per Surgeon's request for Post Op pain control Consent for Procedure(s) Verified and Reviewed: Yes Code Status: Attempt Resuscitation ASA classification: 2-Mild systemic disease Is this case an emergency?: No
[2020-06-02] MEDS ORDERED: ACETAMINOPHEN 1,000 MG/100 ML 100 ML IV ONE ×2 (07:28→08:20)
[2020-06-02] MEDS ORDERED: BUPIVACAINE 0.5% PF 30 ML VIAL ONE (07:32)
[2020-06-02] MEDS ORDERED: LIDOCAINE 2%-EPI 1:100000 20 ML MDV ONE (07:32)
[2020-06-02] MEDS ORDERED: LIDOCAINE 2%-EPI 1:100000 20 ML MDV SUBQ ONE ×2 (08:17)
[2020-06-02] MEDS ORDERED: BUPIVACAINE 0.5% PF 30 ML VIAL SUBQ ONE ×2 (08:17)
[2020-06-02] MEDS ORDERED: KETOROLAC 30 MG/ML VIAL ONE (08:59)
[2020-06-02] MEDS ORDERED: LACTATED RINGERS 500 ML IV ONE (09:19)
[2020-06-02] MEDS ORDERED: ATROPINE ABBOJECT 1 MG/10 ML SYRINGE IVP PRN (09:24)
[2020-06-02] MEDS ORDERED: NALBUPHINE 10 MG/ML AMP IVP PRN (09:24)
[2020-06-02] MEDS ORDERED: MORPHINE PF 5 MG/10 ML VIAL IT ONE (09:24)
[2020-06-02] MEDS ORDERED: ONDANSETRON 4 MG/2 ML VIAL IVP PRN ×2 (09:24)
[2020-06-02] MEDS ORDERED: fentaNYL 100 MCG/2 ML VIAL IT ONE (09:24)
[2020-06-02] MEDS ORDERED: METOCLOPRAMIDE 10 MG/2 ML VIAL IVP PRN ×2 (09:24)
[2020-06-02] MEDS ORDERED: ePHEDrine 50 MG/ML VIAL IVP PRN ×2 (09:24)
[2020-06-02] MEDS ORDERED: diphenhydrAMINE INJ 50 MG/ML VIAL IVP PRN (09:24)
[2020-06-02] MEDS ORDERED: NALOXONE 0.4 MG/ML VIAL IVP PRN ×2 (09:24)
[2020-06-02] MEDS ORDERED: CARBOPROST TROMETHAMINE 250 MCG/ML AMP IM ONE (09:29)
[2020-06-02] MEDS ORDERED: oxyCODONE 5 MG TABLET PO PRN (09:29)
[2020-06-02] MEDS ORDERED: METHYLERGONOVINE 0.2 MG/ML VIAL IM PRN (09:29)
[2020-06-02] MEDS ORDERED: SODIUM CHLORIDE FLUSH 0.9% 10 ML SYRINGE IVP PRN (09:29)
[2020-06-02] MEDS ORDERED: diphenhydrAMINE 25 MG CAPSULE PO PRN (09:29)
--- NOTE | 2020-06-02 09:36 | OPERATIVE REPORT ---
Operative Report - General Admit Date: 06/02/20 Procedure Date: 06/02/20 Planned Procedure: RLTC/S Pre-Op Diagnosis: 39+ WEEKS PRIOR C/S Procedure Performed: RLTC/S - Procedure Note Primary Surgeon: Vazquez Matos MD Secondary Surgeon: Leticia MAR Anesthesia Provider: Feliberto Sheridan CRNA Anesthesia Technique: Spinal IV Fluids (mL): 800 Estimated Blood Loss (mL): 400 Urine Output (mL): 100
--- NOTE | 2020-06-02 10:10 | ANESTHESIA POST OP EVALUATION ---
Anesthesia Post Eval - Post Anesthesia Eval Vitals: Last Vital Signs Temp 36.4 C L 06/02/20 09:50 Pulse 74 06/02/20 09:50 Resp 18 06/02/20 09:50 BP 121/75 06/02/20 09:50 Pulse Ox 99 06/02/20 09:50 CV Function Including HR & BP: positive: Stable Pain Control: positive: Satisfactory Nausea & Vomiting: positive: Negative Mental Status: positive: Baseline Respiratory Status: Airway Patent Hydration Status: Satisfactory Anesthesia Complications: positive: None
--- NOTE | 2020-06-02 10:27 | ONCOLOGY / HEMATOLOGY ---
DATE OF SERVICE: 06/02/2020 Physician: Vazquez Mtaos MD PREOPERATIVE DIAGNOSES: 1. Previous section. 2. Thirty-nine weeks and 3 days. 3. Previous section. POSTOPERATIVE DIAGNOSES: 1. Previous section. 2. Thirty-nine weeks and 3 days. 3. Previous section. PROCEDURE PERFORMED: Repeat low-transverse section. SURGEON: Vazquez Matos MD. PREASSEMBLER PRINTED CIRCUIT BOARD: ISABELA Winters. ANESTHESIOLOGIST: Feliberto Sheridan CRNA. ANESTHETIC: Spinal. ESTIMATED BLOOD LOSS: 400 mL. IV FLUIDS: 800 mL. URINE OUTPUT: 100 mL. FINDINGS: A live male , vertex presentation, clear amniotic fluid, Apgars 9 and 10, nuchal cord x1. DESCRIPTION OF PROCEDURE: Following adequate spinal anesthesia, patient was placed in the supine position with a roll under right hip. A Marie catheter was placed under sterile conditions. Following this, she was prepped and draped in the usual fashion. A timeout was performed, at which concerns were addressed. At this point, the procedure was commenced. The old section scar was excised. The incision was carried down to the fascia. The fascia was incised transversely and carried laterally using Irizarry scissors. Then, using both blunt and sharp dissection, it was freed from the rectus abdominis. There was scar tissue from her previous section. The rectus had been reapproximated at time of previous surgery. The linea alba was divided sharply high to avoid any injury to bowel or bladder. At this point, the peritoneum was entered bluntly, and the incision was carried superiorly and inferiorly using Irizarry scissors. Care was taken to avoid any injury to the bladder. At this point, a bladder flap was developed using both blunt and sharp dissection. A low- transverse uterine incision was accomplished using a #10 blade. The membranes were scored. The incision was carried laterally using bandage scissors with finger spread technique to extend it. Clear amniotic fluid was noted. The head of the was delivered out through the incision, and the nuchal cord was reduced. The remainder of the infant was then delivered without difficulty. Thirty seconds were allowed to transpire before clamping the cord. The was handed to the nail technician that was standing by. At this point, cord blood samples were obtained. The uterus was exteriorized, and the placenta was manually delivered. There was some adherence noted at this time. However, it was able to be extracted in its entirety. Care was taken to make sure there were no membranes left. The incision was closed utilizing a running locking suture of #0 Vicryl with an imbricating layer of #0 Vicryl. The incision was inspected for bleeding, none was noted. The uterus was tipped forward and all blood was removed, and the estimated blood loss was obtained at this time. At this point, the cul-de-sac was irrigated, the uterus was delivered back in the abdominal cavity, and the gutters were likewise irrigated. There was no evidence of any clot remaining, the incision was inspected, and there was no evidence of any bleeding from this site. The peritoneum was closed utilizing 2- 0 Vicryl and with 2 [id number] interrupted to reapproximate the rectus. The rectus muscle was inspected. There were small areas of bleeding, which were treated with electrocautery. The fascia was then closed utilizing PDS. The subcutaneous tissue was irrigated and then closed utilizing 2-0 Vicryl. The incision itself was closed using 4-0 Monocryl. The patient tolerated the procedure well and was taken to recovery in stable condition. Sponge and needle counts were correct. During the entire procedure, Leticia Rouse was instrumental with her retraction as well as fundal pressure and assistance during the case. TD: 06/02/2020 09:43 CLAUDIA
[2020-06-02] MEDS: LACTATED RINGERS 1,000 ML IV SCH ×2 (10:33→17:00)
[2020-06-02] MEDS: KETOROLAC 30 MG/ML VIAL IVP SCH ×3 (10:57→20:32)
[2020-06-02] MEDS ORDERED: OXYTOCIN/SODIUM CHLORIDE 500 ML IV PRN (13:02)
[2020-06-02] MEDS: SIMETHICONE CHEW 80 MG TABLET PO SCH ×2 (15:30→20:31)
[2020-06-02] MEDS: ACETAMINOPHEN 500 MG TABLET PO SCH ×2 (16:30→17:08)
[2020-06-02] MEDS: SODIUM CHLORIDE FLUSH 0.9% 10 ML SYRINGE IVP SCH (17:07)
[2020-06-02] MEDS: DOCUSATE SODIUM 100 MG CAPSULE PO SCH (21:29)
[2020-06-03] MEDS: ACETAMINOPHEN 500 MG TABLET PO SCH ×3 (02:10→19:00)
[2020-06-03] MEDS: KETOROLAC 30 MG/ML VIAL IVP SCH (02:11)
[2020-06-03 05:03] LABS: BASOPHILS % (AUTO) 0.4 %; EOSINOPHILS # (AUTO) 0.1 10^3/uL (0.0-0.7); EOSINOPHILS % (AUTO) 0.8 %; HCT - HEMATOCRIT 29.6 % (37.0-47.0); HGB - HEMOGLOBIN 8.8 g/dL (12.0-16.0); LYMPHOCYTES # (AUTO) 1.3 10^3/uL (1.5-3.5); LYMPHOCYTES % (AUTO) 15.1 %; MEAN CORPUSCULAR HEMOGLOBIN 22.5 pg (27.0-31.0); MEAN CORPUSCULAR HGB CONC 29.7 g/dL (32.0-36.0); MEAN CORPUSCULAR VOLUME 75.7 fL (81.0-99.0); MEAN PLATELET VOLUME 10.5 fL (7.9-10.8); MONOCYTES # (AUTO) 0.6 10^3/uL (0.0-1.0); MONOCYTES % (AUTO) 7.6 %; NEUTROPHILS # (AUTO) 6.3 10^3/uL (1.5-6.6); NEUTROPHILS % (AUTO) 75.5 %; PLT - PLATELET COUNT 176 10^3/uL (130-450); RED BLOOD COUNT 3.91 10^6/uL (4.20-5.40); RED CELL DISTRIBUTION WIDTH 15.3 % (12.0-15.0); WHITE BLOOD COUNT 8.3 x10^3/uL (4.8-10.8)
--- NOTE | 2020-06-03 08:41 | PROVIDER PROGRESS NOTE ---
Subjective - General Admit Date: 06/02/20 Procedure Date: 06/02/20 Post Op Days: 1 Procedure Performed: RLTC/S - Review of Systems Wound/Incisions: positive: Dressing dry and intact General: positive: No symptoms (Pain minimal) Gastrointestinal: positive: Flatus Genitourinary: positive: No symptoms Objective - Patient Data Reviewed Vital Signs: Yes Vital Signs: Vital Signs x48h Temp Pulse Resp BP Pulse Ox 06/03/20 03:00 36.6 C 79 18 103/60 99 Weight: Weight 06/01/20 06/02/20 06/03/20 23:59 23:59 23:59 Weight (kg) 107.955 kg Intake & Output: Intake and Output Totals x24h 06/01/20 06/02/20 06/03/20 23:59 23:59 23:59 Intake Total 2340 200 Output Total 1670 500 Balance 670 -300 - Lab Results Lab Results: 06/03/20 04:55 Other Lab Results: Lab Results x24hrs 06/03/20 Range/Units 04:55 WBC 8.3 (4.8-10.8) x10^3/uL RBC 3.91 L (4.20-5.40) 10^6/uL Hgb 8.8 L (12.0-16.0) g/dL Hct 29.6 L (37.0-47.0) % MCV 75.7 L (81.0-99.0) fL MCH 22.5 L (27.0-31.0) pg MCHC 29.7 L (32.0-36.0) g/dL RDW 15.3 H (12.0-15.0) % Plt Count 176 (130-450) 10^3/uL MPV 10.5 (7.9-10.8) fL Neut # (Auto) 6.3 (1.5-6.6) 10^3/uL Lymph # (Auto) 1.3 L (1.5-3.5) 10^3/uL [place] # (Auto) 0.6 (0.0-1.0) 10^3/uL Eos # (Auto) 0.1 (0.0-0.7) 10^3/uL Baso # (Auto) 0.0 (0.0-0.1) 10^3/uL Absolute Nucleated RBC 0.00 x10^3/uL Nucleated RBC % 0.0 /100WBC - Current Medications Current Medications: Current Medications Generic Name Dose Route Start Last Admin Trade Name Julieth PRN Reason Stop Dose Admin Acetaminophen 1,000 mg 06/02/20 10:00 06/03/20 02:10 Acetaminophen 500 Mg Tablet PO 1,000 mg Q8H ABELINO Administration Docusate Sodium 100 mg 06/02/20 21:00 06/02/20 21:29 Docusate Sodium 100 Mg Capsule PO 100 mg BID ABELINO Administration Lactated Ringer's 1,000 mls @ 100 mls/hr 06/02/20 10:00 06/02/20 17:00 Lr IV 100 mls/hr .Q10H ABELINO Administration Oxytocin/Sodium Chloride 500 mls @ 999 mls/hr 06/02/20 13:02 06/02/20 21:25 Pitocin/Sodium Chloride IV Infused PRN PRN Titration POST- HEMORR PREVENTION Protocol 999 MILLIUNIT/MIN Simethicone 80 mg 06/02/20 14:00 06/02/20 20:31 Simethicone Chew 80 Mg Tablet PO 80 mg TID ABELINO Administration Sodium Chloride 10 ml 06/02/20 17:00 06/02/20 17:07 Sodium Chloride Flush 0.9% 10 Ml Syringe IVP Not Given [id number],[id number],1700 [facility] - Physical Exam Wound/Incisions: positive: Dressing dry and intact General Appearance: positive: No acute distress, Alert Respiratory: positive: Chest non-tender, No respiratory distress, Breath sounds nml Cardiovascular: positive: Regular rate & rhythm, No murmur, No gallop Abdomen: positive: Nml bowel sounds, Mass (u-1) Back: negative: CVA tenderness (R), CVA tenderness (L) Skin: positive: Color nml, No rash Impression/Plan - Problem List Problem List: POD # 1 minimal pain Anemia 8.8 oral iron
[2020-06-03] MEDS: DOCUSATE SODIUM 100 MG CAPSULE PO SCH ×2 (11:09→21:10)
[2020-06-03] MEDS: IBUPROFEN 800 MG TABLET PO PRN ×2 (11:09→23:11)
[2020-06-03] MEDS: SIMETHICONE CHEW 80 MG TABLET PO SCH ×3 (11:26→18:28)
--- NOTE | 2020-06-03 11:30 | OPERATIVE REPORT ---
DATE OF SERVICE: 06/02/2020 Physician: Vazquez Matos MD PREOPERATIVE DIAGNOSES 1. Previous section. 2. Thirty-nine weeks and 3 days. 3. Previous section. POSTOPERATIVE DIAGNOSES 1. Previous section. 2. Thirty-nine weeks and 3 days. 3. Previous section. PROCEDURE PERFORMED: Repeat low-transverse section. SURGEON: Vazquez Matos MD. ACCOUNT LEADER: Leticia Rouse, certified nurse electrical appliance servicer (CNMW). ANESTHESIA PROVIDER: Feliberto Sheridan CRNA. ANESTHETIC: Spinal. ESTIMATED BLOOD LOSS: 400 mL. IV FLUIDS: 800 mL. URINE OUTPUT: 100 mL. FINDINGS: A live male infant, vertex presentation, clear amniotic fluid, Apgars 9 and 10, nuchal cord x1. DESCRIPTION OF PROCEDURE: Following adequate spinal anesthesia, patient was placed in the supine position with a roll under right hip. A Marie catheter was placed under sterile conditions. Following this, she was prepped and draped in the usual fashion. A timeout was performed, at which concerns were addressed. At this point, the procedure was commenced. The old section scar was excised. The incision was carried down to the fascia. The fascia was incised transversely and carried laterally using Irizarry scissors. Then, using both blunt and sharp dissection, it was freed from the rectus abdominis. There was scar tissue from her previous section. The rectus had been reapproximated at time of surgery. The linea alba was divided sharply high to avoid any injury to bowel or bladder. At this point, the peritoneum was entered bluntly, and the incision was carried superiorly and inferiorly using Irizarry scissors. Care was taken to avoid any injury to the bladder. At this point, a bladder flap was developed using both blunt and sharp dissection. A low-transverse uterine incision was accomplished using a #10 blade. The membranes were scored. The incision was carried laterally using bandage scissors with finger spread technique to extend it. Clear amniotic fluid was noted. The head of the infant was delivered out through the incision, and the nuchal cord was reduced. The remainder of the infant was then delivered without difficulty. Thirty seconds were allowed to transpire before clamping the cord. The infant was handed to the wheel loader operator that was standing by. At this point, cord blood samples were obtained. The uterus was exteriorized, and the placenta was manually delivered. There was some adherence noted at this time. However, it was able to be extracted in its entirety. Care was taken to make sure there were no membranes left. The incision was closed utilizing a running locking suture of #0 Vicryl with an imbricating layer of #0 Vicryl. The incision was inspected for bleeding, none was noted. The uterus was tipped forward and all blood was removed, and the estimated blood loss was obtained at this time. At this point, the cul-de-sac was irrigated, the uterus was delivered back in the abdominal cavity, and the gutters were likewise irrigated. There was no evidence of any clot remaining, the incision was inspected, and there was no evidence of any bleeding from this site. The peritoneum was closed utilizing 2-0 Vicryl and with 2 [id number] interrupted to reapproximate the rectus. The rectus muscle was inspected. There were small areas of bleeding, which were treated with electrocautery. The fascia was then closed utilizing PDS. The subcutaneous tissue was irrigated and then closed utilizing 2-0 Vicryl. The incision itself was closed using 4-0 Monocryl. The patient tolerated the procedure well and was taken to recovery in stable condition. Sponge and needle counts were correct. During the entire procedure, Leticia Rouse was instrumental with her retraction as well as fundal pressure and assistance during the case. TD: 06/02/2020 09:43 Worktype 06/03/2020 jese TAYLOR
[2020-06-03] MEDS: SODIUM CHLORIDE FLUSH 0.9% 10 ML SYRINGE IVP SCH ×3 (17:29→18:20)
[2020-06-03] MEDS: LACTATED RINGERS 1,000 ML IV SCH (18:19)
[2020-06-03] MEDS: FERROUS GLUCONATE 324 MG TABLET PO SCH (18:28)
[2020-06-04] MEDS: ACETAMINOPHEN 500 MG TABLET PO SCH (03:14)
[2020-06-04] MEDS: FERROUS GLUCONATE 324 MG TABLET PO SCH (08:04)
[2020-06-04] MEDS: IBUPROFEN 800 MG TABLET PO PRN (08:29)
[2020-06-04] MEDS: SIMETHICONE CHEW 80 MG TABLET PO SCH (08:30)
[2020-06-04] MEDS: DOCUSATE SODIUM 100 MG CAPSULE PO SCH (08:30)
--- NOTE | 2020-06-04 08:30 | Discharge Plan ---
Discharge Plan Problem Reviewed?: Yes Disposition: Home, Self Care Condition: Good Prescriptions: Acetaminophen [Acetaminophen Extra Strength] 1,000 mg PO Q6H PRN #45 tablet PRN Reason: Pain Docusate Sodium 100Mg Capsule [Colace 100Mg Capsule] 100 mg PO BID PRN #30 cap PRN Reason: to soften stool Iron Polysaccharide Complex [Hematex] 150 mg PO DAILY #60 tablet Ibuprofen [Motrin] 600 mg PO Q6H PRN #30 tab PRN Reason: Pain oxyCODONE [Roxicodone] 2.5 - 5 mg PO Q4H PRN #20 tablet PRN Reason: Severe Pain Diet: Regular Activity Restrictions: No lifting more than 10# Shower Restrictions: No Driving Restrictions: Yes (not on oxycodone) No Smoking: If you smoke, Please STOP! Call for help. Follow-up with: Vazquez Matos MD [Provider Admit Priv/Credential] - 1 Week
[2020-06-04 08:36] VITALS: BP 124/74
[2020-06-04] MEDS ORDERED: MAGNESIUM HYDROXIDE 2,400 MG/30 ML UDC PO PRN (08:57)
--- NOTE | 2020-06-04 13:59 | DISCHARGE SUMMARY ---
Physician: Ceci Sy MD DATE OF ADMISSION: 06/02/2020 DATE OF DISCHARGE: 06/04/2020 ADMISSION DIAGNOSES: 1. Intrauterine at 39 weeks. 2. Prior section. DISCHARGE DIAGNOSES: Status post repeat section. PROCEDURES: On 06/02/2020, repeat low transverse section, uncomplicated. HOSPITAL COURSE: The patient was admitted for her repeat section. Her course wa s unremarkable. By day 2 she was requesting discharge home. She was eating, ambulating, urinating without difficulties. She did not have any heavy bleeding or problems with her pain or moo d. She was not and was not having any breast difficulties. She was passing flatus as well. DISCHARGE EXAMINATION: PHYSICAL EXAM: She was afebrile with normal vital signs. GENERAL: Alert and pleasant, in no apparent distress. ABDOMEN: Soft, nontender, nondistended. Fundus firm and 1 cm below the umbilicus, incision covered by a dressing, which is clean and intact. EXTREMITIES: There is no lower extremity edema or erythema. The patient will shower and remove her dressing there. The nurse will call me if there are any problems with her incision. DISCHARGE DISPOSITION: Home. CONDITION: Good. FOLLOWUP: Followup in [address] Matos. PRESCRIPTIONS: Iron, ibuprofen, Tylenol, Colace, oxycodone. TD: 06/04/2020 08:36
== END 2020-06-04 12:55 | disposition home or self-care (01) | DRG 788 ==
LOC: FBP 05:28
PROVIDERS: ADMIT Obstetrics & Gynecology; ATTEND Obstetrics & Gynecology
PROC: 10D00Z1 Extraction of Products of Conception, Low, Open Approach (ICD-10-PCS; principal; 2020-06-02 07:30)
DX: O34.211 Maternal care for low transverse scar from previous cesarean delivery (principal); O69.81X0 Labor and delivery complicated by cord around neck, without compression, not applicable or unspecified; Z37.0 Single live birth; Z3A.39 39 weeks gestation of pregnancy
CPT/HCPCS: 36415; 85025; 86850; 86900; 86901; 86920; A9270; J0131; J0690; J2274; J7120

== ENCOUNTER 2020-07-13 08:00 | Outpatient (CLI) | payer OTHER ==
[2020-07-13 23:44] LABS: CHLAMYDIA TRACHOMATIS DNA NEGATIVE (NEGATIVE); NEISSERIA GONORRHOEAE DNA NEGATIVE (NEGATIVE); TRICHOMONAS VAGINALIS DNA NEGATIVE (NEGATIVE)
== END 2020-07-13 23:59 | disposition home or self-care (01) ==
LOC: LAB.WC 08:00
PROVIDERS: ATTEND Obstetrics & Gynecology
DX: Z11.3 Encounter for screening for infections with a predominantly sexual mode of transmission (principal)
CPT/HCPCS: 87491; 87591; 87661

== ENCOUNTER 2020-11-09 07:23 | Day surgery (SDC) | payer OTHER ==
[~2020-11-09 07:23] MED LIST: ACETAMINOPHEN 1,000 MG/100 ML 100 ML IV ONE; CELECOXIB 100 MG CAPSULE PO ONE; GABAPENTIN 400 MG CAPSULE ONE
[2020-11-09 07:42] LABS: HCG UR QUAL NEGATIVE
[2020-11-09 08:05] LABS: BASOPHILS % (AUTO) 0.6 %; EOSINOPHILS # (AUTO) 0.1 10^3/uL (0.0-0.7); EOSINOPHILS % (AUTO) 0.9 %; HCT - HEMATOCRIT 40.9 % (37.0-47.0); HGB - HEMOGLOBIN 13.5 g/dL (12.0-16.0); LYMPHOCYTES % (AUTO) 30.3 %; MEAN CORPUSCULAR HEMOGLOBIN 26.7 pg (27.0-31.0); MEAN PLATELET VOLUME 10.9 fL (7.9-10.8); MONOCYTES # (AUTO) 0.5 10^3/uL (0.0-1.0); MONOCYTES % (AUTO) 7.3 %; NEUTROPHILS % (AUTO) 60.7 %; PLT - PLATELET COUNT 252 10^3/uL (130-450); RED BLOOD COUNT 5.05 10^6/uL (4.20-5.40); RED CELL DISTRIBUTION WIDTH 14.9 % (12.0-15.0); WHITE BLOOD COUNT 6.6 x10^3/uL (4.8-10.8)
[2020-11-09] MEDS ORDERED: LACTATED RINGERS 1,000 ML IV ONE ×2 (08:05→09:28)
[2020-11-09] MEDS ORDERED: LIDOCAINE-MPF 2% 5 ML VIAL ONE (08:20)
[2020-11-09] MEDS ORDERED: ATROPINE ABBOJECT 1 MG/10 ML SYRINGE IVP PRN (08:20)
[2020-11-09] MEDS ORDERED: MORPHINE 2 MG/ML CARPUJECT IVP PRN (08:20)
[2020-11-09] MEDS ORDERED: HYDROmorphone 0.5 MG/0.5 ML SYRINGE IVP PRN (08:20)
[2020-11-09] MEDS ORDERED: PROPOFOL 200 MG/20 ML VIAL IVP ONE (08:20)
[2020-11-09] MEDS ORDERED: ePHEDrine 50 MG/ML VIAL IVP PRN (08:20)
[2020-11-09] MEDS ORDERED: NALOXONE 0.4 MG/ML VIAL IVP PRN (08:20)
[2020-11-09] MEDS ORDERED: ONDANSETRON 4 MG/2 ML VIAL IVP PRN ×2 (08:20→09:13)
[2020-11-09] MEDS ORDERED: MIDAZOLAM 2 MG/2 ML VIAL ONE (08:20)
[2020-11-09] MEDS ORDERED: METOCLOPRAMIDE 10 MG/2 ML VIAL IVP PRN (08:20)
[2020-11-09] MEDS ORDERED: fentaNYL 100 MCG/2 ML VIAL IVP PRN (08:20)
[2020-11-09] MEDS ORDERED: fentaNYL 100 MCG/2 ML VIAL ONE (08:20)
--- NOTE | 2020-11-09 08:20 | ANESTHESIA ---
Pre-Anesthesia VS, & Labs - Diagnosis mechanical breakdown of IUD - Procedure Hysteroscopic IUD removal Vital Signs: Temp Pulse Resp BP Pulse Ox 36.1 C L 87 12 119/69 98 11/09/20 07:27 11/09/20 07:27 11/09/20 07:27 11/09/20 07:27 11/09/20 07:27 Height: 5 ft 7 in Weight (kg): 111.2 kg Body Mass Index: 38.4 BMI Classification: Obese - NPO >8 hours - Is Patient ?: No - Lab Results Current Lab Results: Laboratory Tests 11/09/20 08:00: WBC 6.6, RBC 5.05, Hgb 13.5, Hct 40.9, MCV 81.0, MCH 26.7 L, MCHC 33.0, RDW 14.9, Plt Count 252, MPV 10.9 H, Neut # (Auto) 4.0, Lymph # (Auto) 2.0, [place] # (Auto) 0.5, Eos # (Auto) 0.1, Baso # (Auto) 0.0, Absolute Nucleated RBC 0.00, Nucleated RBC % 0.0 11/09/20 07:53: POC Whole Bld Glucose 97 Lab results reviewed: Yes Fish Bones: 11/09/20 08:00 Home Medications and Allergies Allergies/Adverse Reactions: Allergies Allergy/AdvReac Type Severity Reaction Status Date / Time No Known Drug Allergies Allergy Verified 11/01/19 01:30 Anes History & Medical History - Anesthetic History Anesthesia Complications: reports: No previous complications Family history of Anesthesia Complications: Denies Family history of Malignant Hyperthermia: Denies - Medical History Cardiovascular: reports: None Pulmonary: reports: None Gastrointestinal: reports: None Urinary: reports: None Neuro: reports: None Musculoskeletal: reports: None Endocrine/Autoimmune: reports: None Blood Disorders: reports: None Skin: reports: None Smoking Status: Never smoker - Surgical History Gynecologic: reports: section Exam General: Alert, Oriented x3, Cooperative, No acute distress Dental: WNL Mouth Openin Fingerbreadth Neck Mobility: Normal Mallampati classification: I Respiratory: Lungs clear, Normal breath sounds, No respiratory distress, No accessory muscle use Cardiovascular: Regular rate, Normal S1, Normal S2, No murmurs Plan Anesthesia Type: General Consent for Procedure(s) Verified and Reviewed: Yes Code Status: Attempt Resuscitation ASA classification: 2-Mild systemic disease Is this case an emergency?: No
--- NOTE | 2020-11-09 08:24 | XRAY Report ---
PROCEDURE: Abdomen 1 View X-Ray INDICATIONS: LOOKING FOR IUD TECHNIQUE: 1 view of the abdomen were acquired. COMPARISON: None. FINDINGS: Surgical changes and devices: Centrally positioned IUD in the expected area of the uterus.. Bowel: No pneumoperitoneum. The bowel gas pattern is normal. Soft tissues: No masses; visualized solid organ contours appear normal in size. No suspicious abdom inal calcifications. Bones: No suspicious bony abnormalities. IMPRESSION: IUD identified at the midportion of the lower pelvis, in the expected anatomic alignment with the uterus, and with morphology and orientation of the IUD as expected for endometrial position ing. Ultrasound could be utilized to further document IUD positioning to supplement this plain film i maging, if clinically indicated. Reviewed by: Chiki Mcneal MD on 11/09/2020 8:22 AM PDT Approved by: Chiki Mcneal MD on 11/09/2020 8:22 AM PDT Station ID: [id number]
[2020-11-09] MEDS ORDERED: BUPIVACAINE 0.5% PF 10 ML VIAL ONE (08:25)
[2020-11-09] MEDS ORDERED: LIDOCAINE 2%-EPI 1:100000 20 ML MDV ONE (08:25)
[2020-11-09] MEDS ORDERED: ONDANSETRON 4 MG/2 ML VIAL ONE (08:27)
[2020-11-09] MEDS ORDERED: KETOROLAC 30 MG/ML VIAL ONE (08:27)
[2020-11-09] MEDS ORDERED: LACTATED RINGERS 1,000 ML IV SCH (09:00)
[2020-11-09] MEDS ORDERED: LORazepam 2 MG/ML VIAL IVP PRN (09:13)
[2020-11-09] MEDS ORDERED: oxyCODONE 5 MG TABLET PO PRN (09:13)
--- NOTE | 2020-11-09 09:16 | OPERATIVE REPORT ---
Operative Report - General Procedure Date: 11/09/20 Planned Procedure: Hysteroscopic removal of IUD Pre-Op Diagnosis: Retained IUD Procedure Performed: Hysteroscopic removal of IUD Post Op Diagnosis: Retained IUD - Procedure Note Primary Surgeon: Vazquez Matos MD Anesthesia Provider: Nia Ayala CRNA Anesthesia Technique: General LMA IV Fluids (mL): 700 Estimated Blood Loss (mL): 10 Urine Output (mL): 100 Indications: Retained IUD Findings: Mirena IUD was located high in the endometrial cavity with the strings wrapped above the lower portion of the shaft. Hysteroscopic deficit was 400 cc of normal saline. Complications: None - Other Other Information/Narrative: Patient was taken back to the operating room at which time general anesthetic was accomplished utilizing a LMA. She was then placed in the dorsolithotomy position. Pelvic examination under anesthesia revealed a uterus which was mid position. The exact dimensions were unable to be determined secondary to abdominal wall thickness. At this point she was prepped and draped in the usual fashion. A timeout was performed which concerns were addressed. The procedure was then commenced. A speculum was placed in vagina cervix visualized grasped with single-tooth tenaculum. The cervix was dilated up to size 7 mm and then sounded to 8 cm. Paracervical block was accomplished utilizing 0.5% Marcaine with 2% lidocaine with epinephrine 5 cc in each uterosacral ligament. A hysteroscope was then introduced into the endometrial cavity the IUD was noted to reside high in the endometrial cavity. Both corneas were visualized and photographs were taken. The IUD strings were noted to be wrapped up around the IUD rather than being down into the cervical canal. A [place] forceps was used to grasp the strings and the IUD and with a single pass this was removed. The endometrial cavity was then visualized in its entirety there is no evidence of polyps fibroids and endometrial cavity appeared to be clear of any lesions. The hysteroscope was removed. The cervix was released from the single-tooth tenaculum. Patient taught procedure well and was taken recovery in stable condition. Sponge and needle counts were correct.
[2020-11-09] MEDS ORDERED: BUPIVACAINE 0.5% PF 10 ML VIAL IM ONE (09:18)
[2020-11-09] MEDS ORDERED: LIDOCAINE 2%-EPI 1:100000 20 ML MDV SUBQ ONE (09:19)
[2020-11-09 10:17] VITALS: BP 115/68
--- NOTE | 2020-11-09 10:27 | ANESTHESIA POST OP EVALUATION ---
Anesthesia Post Eval - Post Anesthesia Eval Vitals: Last Vital Signs Temp 36.6 C 11/09/20 10:15 Pulse 80 11/09/20 10:15 Resp 12 11/09/20 10:15 BP 115/68 11/09/20 10:15 Pulse Ox 100 11/09/20 10:15 CV Function Including HR & BP: Stable Pain Control: Satisfactory Nausea & Vomiting: Negative Mental Status: Baseline Respiratory Status: Airway Patent Hydration Status: Satisfactory Anesthesia Complications: None
== END 2020-11-09 07:24 | disposition home or self-care (01) ==
LOC: SDS 07:23
PROVIDERS: ATTEND Obstetrics & Gynecology
DX: T83.31XA Breakdown (mechanical) of intrauterine contraceptive device, initial encounter (principal); Y76.8 Miscellaneous obstetric and gynecological devices associated with adverse incidents, not elsewhere classified; F41.9 Anxiety disorder, unspecified; F32.9 Major depressive disorder, single episode, unspecified; E66.9 Obesity, unspecified; Z68.38 Body mass index [BMI] 38.0-38.9, adult
CPT/HCPCS: 36415; 58562; 74018; 81025; 85025; A9270; J0131; J7120

== ENCOUNTER 2021-03-16 08:37 | Outpatient (CLI) | payer OTHER ==
[2021-03-16 09:31] VITALS: BP 132/96
--- NOTE | 2021-03-16 09:31 | SLEEP CARE CONSULTATION ---
Information from patient questionnaire entered by Oumou House MA. I have reviewed and concur with the information entered by Oumou House MA. This document represents the service I personally performed and the decisions made by , Kayce Conner ARNP. History of Present Illness Service Date and Time: 03/16/2021 0837 Reason for Visit: New patient Chief Complaint: reports: Unrefreshed sleep, Snoring, Excessive daytime sleepiness, Fatigue, Frequent awakenings at night, Other (WAKING UP WITH HEADACHES) Date of Onset: 12 PLUS MONTHS Usual bedtime: 830 - 1100 PM Time it takes to fall asleep: 30 MINUTES TO AN HOUR Snores at night: Yes Observed to quit breathing while asleep: No Sleeps alone due to snoring: No Number of times waking at night: 3-5 Reasons for waking at night: reports: Snoring, Other (unknown reason). denies: Choking, Gasping for air Toss, Turn, or Twitch while sleeping: Yes Recalls having dreams: Yes Usually gets out of bed at: 0500 - 0800 Feels refreshed in the morning: No Morning headache: Yes (6 days a week, last till afternoon or until has caffeine) Sleepy or fatigued during the day: Yes Ever fallen asleep while driving: No Takes day naps: Yes (3 times last week but usually not) Dreams during day naps: Yes Prior sleep studies: No Additional HPI information: I had the pleasure of seeing JAMES TILLEY today regarding the possibility of her having a sleep disorder. Her current complaints are excessive daytime sleepiness, fatigue, frequent night awakenings, snoring and unrefreshed sleep. She states it takes her 30 minutes to 1 hour to go to sleep normally. She will then wake up 3-5 times throughout the night for unknown reasons. She wakes up at least 6 days a week with headaches that resolve in the afternoon or after having a caffeine drink. She is very tired during the day. She denies any drowsy driving. She has been being treated for depression and insomnia. So far she is not having improvement of her sleep. He told her she snores sometimes but has not seen her have any pauses in breathing. - Parasomnia Symptoms Ever been unable to move upon waking from sleep: No Walks in sleep: No Talks in sleep: No Ever acted out dreams in sleep: No Ever felt weak in the knees when startled or emotional: No Bothered by creepy, crawly, restless sensations in legs: No Problems with memory or concentration: Yes (more memory) Subjective Initial [place] Sleepiness Scale score: 10 (2020) Past Medical History Past Medical History: reports: Anxiety, Depression, Other (LOWER BACK PAIN) Social History The patient's occupation is a AM. Patient is Single and lives in [place]. Have you smoked in the past 12 months: No Alcohol use: No Caffeine use: Yes Caffeine amount and frequency: 1 - 2 X DAILY Family History Family history of sleep disordered breathing: Yes Family Hx Sleep Apnea: Mother: Snoring, Sleep apnea - Untreated, Father: Snoring, Sleep apnea - Treated Allergies and Home Medications Known drug allergies: No Drug allergies reviewed: Yes (NKDA) Home medication list reviewed: Yes Allergy and home medication list: Zoloft 50 mg Review of Systems Weight gain over past 5 years: PLUS 45 LBS Cardiovascular: denies: high blood pressure Gastrointestinal: denies: heartburn Neurological: reports: headaches Psychiatric: reports: anxiety, depression. denies: Attention Deficit Hyperactivity, mood disorder Ear/Nose/Throat: reports: wisdom teeth removed. denies: injury to nose, tonsillectomy Endocrine: reports: sluggishness Musculoskeletal: reports: back pain Immunologic: denies: allergies to food or environment Physical Exam Vital signs obtained and entered by: Mariano HOUSE CMA MA Blood Pressure: 132/96 (left) Cuff size: wrist Heart Rate: 78 O2 Saturation: 98 (with cloth mask) Height: 5 ft 7 in Weight: 239 lb Body Mass Index: 37.4 BMI Classification: Obese Neck circumference: 14.5 (inches) Mouth and throat: narrow oropharynx Soft palate: long Hard palate: normal Uvula: normal Uvula visualization: 50% Mallampati Class II Tongue: enlarged in size with teeth cristobal on lateral edges Tonsils: 1+ Neck: normal w/o lymphadenopathy or thyromegaly Heart: regular rate and rhythm Lungs: clear bilaterally Impression and Plan 1. Suspected Obstructive Sleep Apnea-Hypopnea Syndrome, as suggested by a history of loud and irregular snoring, morning headache, frequent awakening during the night, unrefreshed sleep, cognitive impairment, and excessive daytime sleepiness. Narrow oropharynx and obesity are common predisposing factors for obstructive sleep apnea-hypopnea syndrome. I recommend proceeding to polysomnography to confirm the diagnosis and to assess severity. If the patient has significant sleep disordered breathing, a manual CPAP titration study will also be performed to find the optimal treatment pressure. I informed the patient of what the sleep studies involve and after some discussion, obtained agreement to proceed. The pathophysiology of obstructive sleep apnea-hypopnea syndrome was discussed with the patient and health risks of cardiovascular and cerebrovascular disease if not treated. AAS brochure for obstructive sleep apnea-hypopnea syndrome given and reviewed. Risks of drowsy driving discussed in detail and patient advised to avoid long distance driving and to cotton puller at the first sign of drowsiness. Patient agreed to plan. * Schedule polysomnography +- manual CPAP titration study and return in 1-2 weeks after the study to discuss result and initiate therapy. * Avoid long distance driving or driving when feeling sleepy. * Avoid alcohol, sedative and muscle relaxant around bedtime. * Attempt to lose weight. * Review instructions provided by trained office staff on how to prepare for the sleep study. * Return for follow-up after sleep study completed. Counseling Topics: Weight loss health impact Visit Type: In Office Time Spent with Patient (minutes): 30 Provider Statement: I spent 100% of the Face to Face Visit with the patient with greater than 50% spent counseling the patient and coordination of care.
== END 2021-03-16 08:38 | disposition home or self-care (01) ==
LOC: SC 08:37
PROVIDERS: ATTEND Nurse Practitioner Family
DX: R06.83 Snoring (principal); R51.9 Headache, unspecified; G47.8 Other sleep disorders; R41.89 Other symptoms and signs involving cognitive functions and awareness; G47.10 Hypersomnia, unspecified; E66.9 Obesity, unspecified; Z68.37 Body mass index [BMI] 37.0-37.9, adult
CPT/HCPCS: 99203; 99212

== ENCOUNTER 2021-03-30 09:30 | Outpatient (CLI) | payer OTHER | END 2021-03-30 09:31 | disposition home or self-care (01) | LOC: SC 09:30 | PROVIDERS: ATTEND Nurse Practitioner Family | DX: R06.83 Snoring (principal); R51.9 Headache, unspecified; G47.8 Other sleep disorders; R41.89 Other symptoms and signs involving cognitive functions and awareness; G47.10 Hypersomnia, unspecified; E66.9 Obesity, unspecified; Z68.37 Body mass index [BMI] 37.0-37.9, adult | CPT/HCPCS: 95806 ==

== ENCOUNTER 2021-04-14 09:16 | Outpatient (CLI) | payer OTHER ==
--- NOTE | 2021-04-14 09:31 | SLEEP CARE CONSULTATION ---
Information from patient questionnaire entered by Oumou Zhou MA. I have reviewed and concur with the information entered by Oumou Zhou MA. This document represents the service I personally performed and the decisions made by , Kayce Conner ARNP. History of Present Illness Service Date and Time: 04/14/2021 0920 Initial [place] Sleepiness Scale score: 10 (2020) Current [place] Sleepiness Scale score: 10 Additional HPI information: JAMES TILLEY returns via video Telehealth visit for follow up and results of the recently performed home sleep study. The patient was informed of the following findings: No significant sleep disordered breathing with an average AHI of 0.6 and lesley oxygen saturation of 91%, patient appeared to be awake a lot during the sleep study. I explained the pathophysiology behind obstructive sleep apnea. Patient does not have sleep apnea and was advised how weight gain could increase the risk of developing sleep apnea in the future. I strongly encouraged the patient to lose weight. Patient counseled not drink alcohol less than 4 hours before bedtime as it can increase snoring and apnea. Patient was cautioned about risks of drowsy driving until sleepiness symptoms resolve. Patient denies drowsy driving. Sleep Study - Results Prior sleep studies: No Polysomnography/Home Sleep Study results: Physician Impression: The quality of the study is good but the patient appears to be awake a lot. The length of the study is adequate (> 240 minutes). Please also see the tabulated and graphic data. 1. No significant sleep disordered breathing, with an AHI of 0.6/hr and lesley SaO2 of 91%. During the study, the patient had 4 apneas (4 obstructive, 0 central, 0 mixed) and 1 hypopneas. The longest episode lasted 31.5 seconds. The patient slept mostly supine (supine AHI was 0.6 and non-supine, 0.65). Allergies and Home Medications Home medication list reviewed: Yes (Terbinafine for feet) Review of Systems Review of systems same as previous: Yes (no changes) Physical Exam Vital signs obtained and entered by: Telehealth visit to reduce exposure during Covid pandemic Height: 5 ft 7 in Impression and Plan 1. Insomnia, unspecified. Insomnia is generally caused by an irregular sleep schedule, spending too much time in bed, napping, caffiene, electronics, lack of a relaxing bedtime ritual and clock watching. Other factors can include anxiety/depression, pain, medications, and obstructive sleep apnea. First I counseled the patient on the importance of a regular sleep schedule, starting with the wake time. I explained the homestatic sleep drive and how maintaining a regular wake time will allow the patient to be tired enough to sleep 15-16 hours later. By waking at the same time, the patient will also feel more alert. Additionally too much time spent in bed can cause more sleep disruption as most people only need 7-9 hours of sleep. Thus patient advised to restrict time in bed to 7-8 hours. Naps are to be avoided unless overcome by sleepiness. Then naps are to be restricted to one hour and before 3 pm so as not to interfere with nighttime sleep. Most caffeine is to be stopped after lunch as it has a 6 hour half life and reduce sleep latency and efficiency. In addition, it is important to have a relaxing ritual about 30-60 minutes before bedtime to allow the mind/body tra nsition from an active day to sleep. A warm bath or shower is another way to assist transition to sleep. In addition, it is important to have a sleep environment conducive to sleep such as a comfortable bed, comfortable temperature and quiet. The alarm clock should be set and the face covered to prevent clock watching if awakened during the night. Knowing the time can cause anxiety and increase alertness and thinking about sleep time and preparation for the next day. Instead if awakened after sleep, the patient is to position for comfort or use bathroom and return to sleep. If unable to go to sleep in an estimated 20 minutes of more, it is advised to leave the bedroom and engage in a quiet activity until sleepy enough to return to bed. If unable to sleep due to things on the mind, it is recommended to write out the concerns or list to do as a release then return to a quiet activity until sleepy enough to return to bed. This is to be repeated as often as necessary to associate the bed with sleep and not frustration to get to sleep. She was also advised to try progressive muscle relaxation while focusing on breathing to help calm the mind and induce sleep. Patient voiced understanding. * Get up at same time every morning * Progressive muscle relaxation to induce sleep * Attempt to lose weight * Avoid alcohol consumption near bedtime * Return as needed for follow up. Counseling Topics: Weight loss health impact Visit Type: Telehealth Video Video Type: [place] Patient Location: Home (in [place]) Location of Provider: Office Patient agrees and consents to this telehealth visit type: Yes Patient agrees to have their insurance billed: Yes Time Spent with Patient (minutes): 13 Provider Statement: I spent 100% of the Telehealth Video Call with the patient with greater than 50% spent counseling the patient and coordination of care.
== END 2021-04-14 09:17 | disposition home or self-care (01) ==
LOC: SC 09:16
PROVIDERS: ATTEND Nurse Practitioner Family
DX: G47.00 Insomnia, unspecified (principal)
CPT/HCPCS: 99212